=== PATIENT | male | born 1990 | race Two or more races ===

== ENCOUNTER 2021-07-02 06:14 | Day surgery (SDC) | payer OTHER ==
[2021-06-30 11:03] VITALS: BMI 27.1
[2021-07-02] MEDS ORDERED: VANCOMYCIN 1,000 MG VIAL (RESTRICTED TO ID ONLY) ONE (07:20)
[2021-07-02] MEDS ORDERED: EPINEPHrine 1:1,000 1,000 MCG/ML ML ONE (07:21)
[2021-07-02] MEDS ORDERED: BUPIVACAINE HCL/PF 2.5 MG/ML - 30 ML VIAL IJ ONE (07:21)
[2021-07-02] MEDS ORDERED: PROPOFOL 20 ML ONE ×2 (07:22)
[2021-07-02] MEDS ORDERED: SEVOFLURANE 250 ML BTL ONE (07:22)
[2021-07-02] MEDS ORDERED: SUCCINYLCHOLINE CHLORIDE 200 MG/10 ML SYRINGE ONE (07:22)
[2021-07-02] MEDS ORDERED: BUPIVACAINE HCL 50 ML ONE (07:26)
[2021-07-02] MEDS ORDERED: BUPIVACAINE LIPOSOME/PF (EXPAREL) 266 MG/20 ML VIAL ONE (07:26)
[2021-07-02] MEDS ORDERED: MIDAZOLAM HCL 2 MG/2 ML SINGLE DOSE VIAL ONE (07:26)
[2021-07-02] MEDS ORDERED: ONDANSETRON 4 MG/2 ML VIAL IVPUSH PRN (07:35)
[2021-07-02] MEDS ORDERED: oxyCODONE HCL 5 MG TABLET PO PRN (07:35)
[2021-07-02] MEDS ORDERED: LACTATED RINGERS SOLUTION 1,000 ML IV SCH (07:45)
[2021-07-02] MEDS ORDERED: ceFAZolin SODIUM 1 GM VIAL ONE (07:58)
[2021-07-02] MEDS ORDERED: DEXAMETHASONE SOD PHOSPHATE 4 MG/1 ML VIAL ONE (08:13)
[2021-07-02] MEDS ORDERED: KETOROLAC TROMETHAMINE 30 MG/1 ML VIAL ONE (09:50)
[2021-07-02] MEDS ORDERED: ONDANSETRON 4 MG/2 ML VIAL ONE (09:50)
[2021-07-02] MEDS ORDERED: GUM MASTIC/STORAX/MSAL/ALCOHOL 1 DRP DROPSBTL MC ONE (09:54)
[2021-07-02] MEDS: oxyCODONE HCL 5 MG TABLET ONE (11:14)
[2021-07-02 11:32] VITALS: PULSE 72; TEMP 97.8
[2021-07-02 12:27] VITALS: BP 105/52
== END 2021-07-02 12:10 | disposition home or self-care (01) ==
LOC: FASU 06:14
PROVIDERS: ATTEND Orthopaedic Surgery Sports Medicine
PROC: 0MRN47Z Replacement of Right Knee Bursa and Ligament with Autologous Tissue Substitute, Percutaneous Endoscopic Approach (ICD-10-PCS; principal; 2021-07-02 08:13)
PROC: 0SQC4ZZ Repair Right Knee Joint, Percutaneous Endoscopic Approach (ICD-10-PCS; 2021-07-02 08:13)
DX: S83.511A Sprain of anterior cruciate ligament of right knee, initial encounter (principal); S83.241A Other tear of medial meniscus, current injury, right knee, initial encounter; X58.XXXA Exposure to other specified factors, initial encounter; Y93.9 Activity, unspecified; Y92.9 Unspecified place or not applicable
CPT/HCPCS: 29882; 29888; C1713; 94760